=== PATIENT | female | born 1990 | race Two or more races ===

== ENCOUNTER → 2021-08-22 | Emergency (ER) | payer MEDICAID, OTHER ==
[~2021-08-22] VITALS: Ht 172.7 cm; Wt 81.6 kg
[2021-08-22 18:18] VITALS: BP 145/87
== END | disposition left against medical advice (07) ==
LOC: EDUNIT# 17:57 → ER 17:57 → EDBD 17:57
DX: R51.9 Headache, unspecified (principal); Z53.21 Procedure and treatment not carried out due to patient leaving prior to being seen by health care provider

== ENCOUNTER 2022-01-11 01:53 | Emergency (ER) | payer MEDICAID ==
[~2022-01-11] VITALS: Ht 167.6 cm; Wt 83.9 kg
[2022-01-11] MEDS ORDERED: methylPREDNISolone SOD SUCC 125 MG/2 ML VL IV ONE (02:15)
[2022-01-11] MEDS ORDERED: ALBUTEROL SULF 2.5 MG/0.5ML(0.5%) NEB SOLN NEB ONE (02:15)
[2022-01-11] MEDS ORDERED: IPRATROPIUM BROM 0.5 MG/2.5ML INH SOL NEB ONE (02:15)
[2022-01-11] MEDS ORDERED: ALBU108A5 IN (03:27)
[2022-01-11] MEDS ORDERED: ALBU0.084 NEB (03:27)
[2022-01-11] MEDS ORDERED: PRED20TA2 PO (03:27)
[2022-01-11 03:35] VITALS: BP 128/62
== END 2022-01-11 03:42 | disposition home or self-care (01) ==
LOC: ER 01:53
DX: J45.901 Unspecified asthma with (acute) exacerbation (principal)
CPT/HCPCS: 94640; 96374; 99283; J2930; J7644